=== PATIENT | male | born 1965 | race Caucasian/White ===

== ENCOUNTER 2020-04-20 19:02 | Emergency (ER) | payer MEDICAID ==
[~2020-04-20] VITALS: Ht 185.4 cm; Wt 86.0 kg
[~2020-04-20 19:02] MED LIST: BUSPAR; P20 PO; WELLBUTRIN; [UNRECOGNIZED DRUG - OTHER]
[2020-04-20 19:48] LABS: BASOPHILS % 0.7 % (0.0-2.0); EOSINOPHILS % 0.7 % (0.0-5.0); HEMATOCRIT. 35.6 % (42.0-52.0); HEMOGLOBIN. 11.4 g/dL (14.0-18.0); LYMPHOCYTES % 9.7 % (20.0-50.0); MEAN CORPUSCULAR HEMOGLOBIN 25.4 pg (28.0-32.0); MEAN CORPUSCULAR VOLUME 79.3 fL (80.0-94.0); MEAN PLATELET VOLUME 9.2 fl (7.4-10.4); MONOCYTES % 6.4 % (2.0-8.0); NEUTROPHILS % 82.5 % (40.0-76.0); PLATELET 274 x1000/uL (130-400); RED BLOOD CELL COUNT 4.49 mill/uL (4.7-6.1); RED CELL DISTRIBUTION WIDTH 18.4 % (11.6-14.6)
[2020-04-20 19:50] LABS: CHLORIDE 105 mEq/L (98-107)
[2020-04-20 19:53] LABS: ETHANOL BLOOD < 10 mg/dL
[2020-04-20 20:16] LABS: CLARITY URINE CLEAR (CLEAR); COLOR URINE YELLOW (YELLOW); KETONES URINE NEGATIVE (NEGATIVE); LEUKOCYTE ESTERASE URINE 1+ (NEGATIVE); NITRITE URINE NEGATIVE (NEGATIVE); OCCULT BLOOD URINE NEGATIVE (NEGATIVE); PH URINE 7.5 (4.5-8.0); PROTEIN URINE NEGATIVE (NEGATIVE); SPECIFIC GRAVITY URINE 1.019 (1.005-1.030); UROBILINOGEN URINE 0.2 E.U./dL (0.2-1.0)
[2020-04-20 20:55] LABS: *AMPHETAMINES SCREEN URINE NEGATIVE (NEGATIVE); *BARBITURATES SCREEN URINE NEGATIVE (NEGATIVE)
[2020-04-20 20:56] LABS: *BENZODIAZEPINES SCREEN URINE NEGATIVE (NEGATIVE); *COCAINE SCREEN URINE NEGATIVE (NEGATIVE); CANNABINOID URINE SCREEN NEGATIVE (NEGATIVE); METHADONE URINE SCREEN NEGATIVE (NEGATIVE); OPIATES URINE SCREEN PRESUMTIVE POSITIVE (NEGATIVE); PHENCYCLIDINE URINE SCREEN NEGATIVE (NEGATIVE)
[2020-04-20] MEDS ORDERED: LORAZEPAM 2MG/ML CPJ IV ONE (21:15)
[2020-04-20] MEDS ORDERED: OLANZAPINE 5MG TABLET PO SCH (21:15)
[2020-04-20] MEDS ORDERED: LORAZEPAM 1MG TABLET PO ONE (21:45)
[2020-04-20] MEDS ORDERED: OLANZAPINE 10 MG/VIAL IM ONE (22:00)
[2020-04-20] MEDS ORDERED: LORAZEPAM 2MG/ML CPJ IM ONE (22:00)
[2020-04-20] MEDS ORDERED: DIPHENHYDRAMINE 50MG/ML VIAL IM ONE (22:00)
[2020-04-21] MEDS ORDERED: BUSPIRONE HCL 10MG TABLET PO ONE (09:30)
[2020-04-21] MEDS ORDERED: BUPROPION HCL 150MG TABLET XL 24HR PO ONE (09:30)
[2020-04-21] MEDS ORDERED: BUSP10TA4 PO (10:40)
[2020-04-21] MEDS ORDERED: BUPR-102 PO (10:42)
[2020-04-21] MEDS ORDERED: HYDR50CA PO (10:42)
[2020-04-21 11:36] VITALS: BP 131/81
== END 2020-04-21 11:43 | disposition home or self-care (01) ==
LOC: ER 19:02
DX: R45.851 Suicidal ideations (principal); F41.9 Anxiety disorder, unspecified; F31.9 Bipolar disorder, unspecified; F20.9 Schizophrenia, unspecified; Z87.891 Personal history of nicotine dependence; Z79.899 Other long term (current) drug therapy; Z88.8 Allergy status to other drugs, medicaments and biological substances; Z20.822 Contact with and (suspected) exposure to COVID-19
CPT/HCPCS: 36415; 80053; 80305; 80307; 80320; 80329; 81003; 85025; 87635; 93005; 96372; 99285; J2060; J3490; J1200; G0480